=== PATIENT | female | born 1985 | race Caucasian/White ===

== ENCOUNTER 2017-11-12 20:41 | Emergency (ER) | payer OTHER ==
[~2017-11-12] VITALS: Ht 160 cm; Wt 66.7 kg
[2017-11-12] MEDS ORDERED: NUVARING VAGIN1 EACH VAG (21:22)
[2017-11-12 22:30] VITALS: BP 126/71
== END 2017-11-12 22:31 | disposition home or self-care (01) ==
LOC: ER 20:41
DX: S51.812A Laceration without foreign body of left forearm, initial encounter (principal); W26.8XXA Contact with other sharp object(s), not elsewhere classified, initial encounter; Y93.89 Activity, other specified; Y92.89 Other specified places as the place of occurrence of the external cause; Y99.8 Other external cause status